=== PATIENT | male | born 1980 | race Native Hawaiian/Other Pacific Islander ===

== ENCOUNTER → 2018-07-03 | Emergency (ER) | payer OTHER ==
[~2018-07-03] MED LIST: CARDIZEM CD 12120 MG PO
[2018-07-03 17:30] LABS: BASO # 0.1 (0.0-0.2); BASO % 0.5 % (0.0-2.0); EOS % 0.4 % (0-4.0); GRAN # 7.7 (1.4-6.5); GRAN % 81.4 % (42.2-75.2); HEMATOCRIT 42.6 % (42.0-52.0); HEMOGLOBIN 13.7 g/dl (13.5-18.0); LYMPH # 1.2 (1.2-3.4); LYMPH % 12.5 % (20.0-51.0); MEAN CELL VOLUME 70 fl (80.0-100.0); MEAN CORPUSCULAR HEMOGLOBIN 23 pg (27.0-31.0); MEAN CORPUSCULAR HGB CONC 32 g/dl (33.0-37.0); MEAN PLATELET VOLUME 8.9 fl (7.4-10.4); MONO # 0.5 (0.1-0.6); MONO % 4.9 % (1.7-9.3); PLATELET COUNT 409 K/mm3 (130-400); RED BLOOD COUNT 6.06 M/mm3 (4.20-5.60); REDCELL DISTRIBUTION WIDTH-CV 14.6 % (11.5-14.5)
[2018-07-03 17:36] LABS: ALBUMIN 4.4 gm/dL (3.5-5.0); BILIRUBIN,TOTAL 0.3 mg/dL (0.0-1.0); CALCIUM 9.4 mg/dL (8.4-10.2); CREATININE, serum 0.89 mg/dL (0.66-1.25); POTASSIUM 4.4 mmol/L (3.4-5.0); TOTAL PROTEIN 8.1 gm/dL (6.4-8.2)
[2018-07-03 19:30] VITALS: BP 103/85; PULSE 89
== END ==
LOC: COL.ER 16:12 → EDBD 16:13 → COL.ER 16:13
PROVIDERS: Emergency Medicine
DX: R00.2 Palpitations (principal)
CPT/HCPCS: C9113; J0153

== ENCOUNTER 2018-07-17 16:13 | Emergency (ER) | payer OTHER ==
[~2018-07-17] VITALS: Ht 167.6 cm; Wt 72.7 kg
[2018-07-17 16:15] VITALS: TEMP 99.5
[2018-07-17] MEDS ORDERED: ASPIRIN 81M81 MG/TA2 (16:23)
[2018-07-17 17:07] LABS: BASO # 0.1 (0.0-0.2); BASO % 0.6 % (0.0-2.0); EOS # 0.1 (0.0-0.7); EOS % 0.8 % (0-4.0); GRAN # 5.8 (1.4-6.5); GRAN % 74.6 % (42.2-75.2); HEMATOCRIT 42.4 % (42.0-52.0); HEMOGLOBIN 13.7 g/dl (13.5-18.0); LYMPH # 1.3 (1.2-3.4); LYMPH % 16.4 % (20.0-51.0); MEAN CELL VOLUME 71 fl (80.0-100.0); MEAN CORPUSCULAR HEMOGLOBIN 23 pg (27.0-31.0); MEAN CORPUSCULAR HGB CONC 32 g/dl (33.0-37.0); MONO # 0.6 (0.1-0.6); MONO % 7.3 % (1.7-9.3); PLATELET COUNT 385 K/mm3 (130-400); RED BLOOD COUNT 5.95 M/mm3 (4.20-5.60); REDCELL DISTRIBUTION WIDTH-CV 14.6 % (11.5-14.5)
[2018-07-17] MEDS ORDERED: ATIVAN 0.50.5 MG/TAB PO (17:15)
[2018-07-17 17:17] VITALS: BP 136/88; PULSE 93
[2018-07-17 17:33] LABS: ALBUMIN 4.3 gm/dL (3.5-5.0); BILIRUBIN,TOTAL 0.2 mg/dL (0.0-1.0); CALCIUM 8.7 mg/dL (8.4-10.2); CREATININE, serum 1.05 (0.66-1.25); POTASSIUM 3.8 mmol/L (3.4-5.0); TOTAL PROTEIN 7.8 gm/dL (6.4-8.2)
== END 2018-07-17 17:23 | disposition home or self-care (01) ==
LOC: COL.ER 16:13
PROVIDERS: Family Medicine
DX: I47.1 Supraventricular tachycardia (principal); F41.9 Anxiety disorder, unspecified; Z79.82 Long term (current) use of aspirin
CPT/HCPCS: J7030